=== PATIENT | female | born 1950 | race Caucasian/White ===

== ENCOUNTER 2016-12-08 13:13 | Outpatient (CLI) | payer MEDICARE, OTHER ==
[2016-12-08] MEDS ORDERED: GADOPENTETATE DIMEGLUMINE 5 ML VIAL IVP ONE (14:39)
[2016-12-08] MEDS ORDERED: BUFFERED LIDOCAINE 10 ML SYRINGE IU ONE (14:39)
[2016-12-08] MEDS ORDERED: LIDOCAINE-MPF 1% 5 ML VIAL SUBQ ONE (14:39)
[2016-12-08] MEDS ORDERED: IOTHALAMATE MEGLUMINE 50 ML VIAL IVP ONE (14:39)
== END 2016-12-08 13:14 | disposition home or self-care (01) ==
DX: M81.0 Age-related osteoporosis without current pathological fracture (principal); S46.811A Strain of other muscles, fascia and tendons at shoulder and upper arm level, right arm, initial encounter; M19.011 Primary osteoarthritis, right shoulder
CPT/HCPCS: 23350; 73222; 77002; 77080; Q9961

== ENCOUNTER 2017-01-05 10:48 | Day surgery (SDC) | payer MEDICARE, OTHER ==
[2017-01-05] MEDS ORDERED: LACTATED RINGERS 1,000 ML IV ONE (11:27)
[2017-01-05] MEDS ORDERED: fentaNYL 100 MCG/2 ML VIAL IVP ONE (13:06)
[2017-01-05] MEDS ORDERED: MIDAZOLAM 2 MG/2 ML VIAL IVP ONE (13:06)
[2017-01-05] MEDS ORDERED: BENZOCAINE/TETRACAINE/BUTAMBEN SPRAY 56 GM TOP ONE (13:11)
[2017-01-05] MEDS ORDERED: ONDANSETRON 4 MG/2 ML VIAL ONE (14:12)
[2017-01-05 15:57] VITALS: BP 162/78
== END 2017-01-05 10:49 | disposition home or self-care (01) ==
LOC: SDS 10:48
PROVIDERS: ATTEND Surgery
PROC: 0DJD8ZZ Inspection of Lower Intestinal Tract, Via Natural or Artificial Opening Endoscopic (ICD-10-PCS; principal; 2017-01-05 12:15)
PROC: 0DB68ZX Excision of Stomach, Via Natural or Artificial Opening Endoscopic, Diagnostic (ICD-10-PCS; 2017-01-05 12:15)
DX: R19.5 Other fecal abnormalities (principal); K29.50 Unspecified chronic gastritis without bleeding; K57.30 Diverticulosis of large intestine without perforation or abscess without bleeding; K64.8 Other hemorrhoids; Q27.33 Arteriovenous malformation of digestive system vessel; I10 Essential (primary) hypertension; E78.5 Hyperlipidemia, unspecified; F41.9 Anxiety disorder, unspecified
CPT/HCPCS: 43239; 45378; A9270; J7120; 88305; 88342

== ENCOUNTER → 2018-06-15 | Outpatient (CLI) | payer MEDICARE, OTHER ==
[2018-06-15 13:20] LABS: ALT ALANINE AMINOTRANSFERASE 25 IU/L (10-60); AST ASPARTATE AMINOTRANSFERASE 23 IU/L (10-42); BUN - BLOOD UREA NITROGEN 17 mg/dL (6-20); CARBON DIOXIDE - CO2 31 mmol/L (21-32); CHLORIDE 104 mmol/L (101-111); CHOL/HDL RATIO 2.2 (<4.4); CHOLESTEROL 125 mg/dL; CREATININE 0.8 mg/dL (0.4-1.0); GFR - MDRD 72 (>89); GLUCOSE 88 mg/dL (70-100); HDL CHOLESTEROL 57 mg/dL; LDL CHOLESTEROL,CALCULATED 56 mg/dL; SODIUM 141 mmol/L (135-145); VLDL CHOLESTEROL 12 mg/dL
== END ==
LOC: LAB.WCP 12:17
PROVIDERS: ATTEND Internal Medicine
DX: E78.5 Hyperlipidemia, unspecified (principal); I10 Essential (primary) hypertension
CPT/HCPCS: 36415; 80051; 80061; 82565; 82947; 83721; 84450; 84460; 84520

== ENCOUNTER 2018-08-01 07:46 | Outpatient (CLI) | payer MEDICARE, OTHER ==
--- NOTE | 2018-08-14 09:20 | Mammography Report ---
Reason: SCREENING MAMMO Procedure Date: 08/01/2018 Accession Number: [id number] / [id number] Procedure: [facility] - Screening Mammo w/Reagan CPT Code: FULL RESULT: EXAM: Screening Mammo w/Reagan DATE: 08/01/2018 8:19 AM CLINICAL HISTORY: Screening encounter. Family history of breast cancer in a maternal aunt at the age of 45. History of benign left breast biopsy in 2004. TECHNIQUE: Bilateral CC and MLO views were obtained. COMPARISON: None available. FINDINGS: The breasts demonstrate scattered fibroglandular densities bilaterally. The left lower outer breast contains a 1.5 cm well-circumscribed isodense mass with associated calcifications, 8.5 cm from the nipple. If prior studies can be made available, comparison for stability could be made. Otherwise, additional imaging by ultrasound is required. No suspicious masses, clustered microcalcifications, or regions of architectural distortion are identified. IMPRESSION: Incomplete examination RECOMMENDATION: Additional evaluation in the form of comparison to previous studies for stability, or if this is not possible, targeted left breast ultrasound of the lower lateral left breast mass. BIRADS CATEGORY 0: Incomplete examination STANDARD QUALIFYING STATEMENTS: 1. This examination was not reviewed with the aid of Computer-Aided Detection (CAD). 2. A negative or benign imaging report should not preclude biopsy if clinically suspicious findings are present. 3. Dense breasts may obscure an underlying neoplasm. 4. This examination was reviewed with the aid of 3D breast imaging (tomosynthesis).
== END 2018-08-01 07:47 | disposition home or self-care (01) ==
LOC: DI 07:46
DX: Z12.31 Encounter for screening mammogram for malignant neoplasm of breast (principal); R92.8 Other abnormal and inconclusive findings on diagnostic imaging of breast; Z80.3 Family history of malignant neoplasm of breast
CPT/HCPCS: 77063; 77067

== ENCOUNTER 2019-08-08 08:00 | Outpatient (CLI) | payer MEDICARE, OTHER ==
[2019-08-08 12:31] LABS: ALT ALANINE AMINOTRANSFERASE 21 IU/L (10-60); AST ASPARTATE AMINOTRANSFERASE 20 IU/L (10-42); BUN - BLOOD UREA NITROGEN 14 mg/dL (6-20); CARBON DIOXIDE - CO2 28 mmol/L (21-32); CHLORIDE 105 mmol/L (101-111); CHOL/HDL RATIO 2.8 (<4.4); CHOLESTEROL 152 mg/dL; CREATININE 0.9 mg/dL (0.4-1.0); GFR - MDRD 62 (>89); GLUCOSE 92 mg/dL (70-100); HDL CHOLESTEROL 55 mg/dL; LDL CHOLESTEROL,CALCULATED 83 mg/dL; LDL/HDL RATIO 1.5 (<4.4); SODIUM 140 mmol/L (135-145); VLDL CHOLESTEROL 14 mg/dL
[2019-08-08 12:55] LABS: BASOPHILS # (AUTO) 0.1 10^3/uL (0.0-0.1); EOSINOPHILS # (AUTO) 0.1 10^3/uL (0.0-0.7); EOSINOPHILS % (AUTO) 1.7 %; HGB - HEMOGLOBIN 14.4 g/dL (12.0-16.0); LYMPHOCYTES % (AUTO) 37.4 %; MEAN CORPUSCULAR HGB CONC 31.6 g/dL (32.0-36.0); MEAN CORPUSCULAR VOLUME 82.3 fL (81.0-99.0); MEAN PLATELET VOLUME 10.2 fL (7.9-10.8); MONOCYTES # (AUTO) 0.4 10^3/uL (0.0-1.0); MONOCYTES % (AUTO) 7.9 %; NEUTROPHILS # (AUTO) 2.7 10^3/uL (1.5-6.6); NEUTROPHILS % (AUTO) 51.8 %; PLT - PLATELET COUNT 289 10^3/uL (130-450); RED BLOOD COUNT 5.54 10^6/uL (4.20-5.40); RED CELL DISTRIBUTION WIDTH 13.6 % (12.0-15.0); WHITE BLOOD COUNT 5.2 x10^3/uL (4.8-10.8)
== END 2019-08-08 23:59 | disposition home or self-care (01) ==
LOC: LAB.WCP 08:00
PROVIDERS: ATTEND Internal Medicine
DX: E78.5 Hyperlipidemia, unspecified (principal); I10 Essential (primary) hypertension; R53.82 Chronic fatigue, unspecified
CPT/HCPCS: 36415; 80048; 80061; 83721; 84450; 84460; 85025

== ENCOUNTER 2022-10-17 09:53 | Outpatient (CLI) | payer MEDICARE, OTHER | END 2022-10-17 23:59 | disposition short-term general hospital (02) | LOC: EMS 09:53 | DX: R10.31 Right lower quadrant pain (principal); R10.32 Left lower quadrant pain; R10.814 Left lower quadrant abdominal tenderness; R10.813 Right lower quadrant abdominal tenderness; R11.2 Nausea with vomiting, unspecified | CPT/HCPCS: A0425; A0427; A0888 ==

== ENCOUNTER 2022-12-27 06:36 | Outpatient (CLI) | payer MEDICARE, OTHER | END 2022-12-27 06:37 | disposition short-term general hospital (02) | LOC: EMS 06:36 | DX: R07.89 Other chest pain (principal); R06.02 Shortness of breath; Z79.02 Long term (current) use of antithrombotics/antiplatelets; Z79.82 Long term (current) use of aspirin | CPT/HCPCS: A0425; A0427; A0888 ==

== ENCOUNTER 2022-12-29 00:55 | Outpatient (CLI) | payer MEDICARE, OTHER | END 2022-12-29 23:59 | disposition short-term general hospital (02) | LOC: EMS 00:55 | DX: R10.12 Left upper quadrant pain (principal); R10.32 Left lower quadrant pain; M79.652 Pain in left thigh; M79.651 Pain in right thigh | CPT/HCPCS: A0425; A0427 ==